=== PATIENT | female | born 1980 | race Caucasian/White ===

== ENCOUNTER 2016-08-10 00:58 | Emergency (ER) | payer OTHER ==
[~2016-08-10] VITALS: Ht 160 cm; Wt 117.8 kg
[~2016-08-10 00:58] MED LIST: LAMO25TA PO; LEVO1TAB PO; LORA-741 PO; SERT25TA PO; SITA100T3 PO; TOPI50TA16 PO; ZIPR20CA PO
[2016-08-10 01:00] VITALS: TEMP 37.1; Ht 160 cm; Wt 117.8 kg
[2016-08-10] MEDS ORDERED: ONDANSETRON INJ 2 MG/ML 2 ML VIAL IV STA (01:12)
[2016-08-10] MEDS ORDERED: HYDROmorphone INJ 1 MG/ML SYR IV STA ×2 (01:12→02:12)
[2016-08-10 01:15] VITALS: O2SAT 98
[2016-08-10 01:33] LABS: BASO % 0.2 %; BASO ABS # 0.03 K/uL (0-0.2); COMPLETE YES; EOS % 1.7 %; HEMATOCRIT 42.5 % (37-47); IG% 0.4 %; LYMPH % 13.8 %; LYMPH ABS # 2.11 K/uL (1.2-3.4); MEAN CELL VOLUME 88.5 fL (80-100); MEAN CORPUSCULAR HEMOGLOBIN 30.6 pg (25-34); MEAN CORPUSCULAR HGB CONC 34.6 g/dl (32-36); MEAN PLATELET VOLUME 10.8 fL (7.4-10.4); MONO % 4.9 %; PLATELET COUNT 192 K/uL (130-400); WHITE BLOOD COUNT 15.34 K/uL (4.8-10.8)
[2016-08-10 01:38] LABS: URINE APPEARANCE CLOUDY (CLEAR); URINE BILIRUBIN NEG (NEG); URINE COLOR YELLOW; URINE EPITHELIAL CELL AUTO >30 /lpf (0-5); URINE NITRITE NEG (NEG); URINE PH 5.5 (4.5-7.5); URINE SPECIFIC GRAVITY 1.031 (1.000-1.030); UROBILINOGEN NEG (NEG); ZZUR CULT IF INDIC CLEAN CATCH YES
[2016-08-10 01:39] LABS: MANUAL MICROSCOPIC REQUIRED? NO; REVIEW REQ? NO
[2016-08-10] MEDS ORDERED: LAMO200T35 PO (01:50)
[2016-08-10 01:53] LABS: ALT/SGPT 19 U/L (12-78); BLOOD UREA NITROGEN 14 mg/dl (7-18); BUN/CREATININE RATIO 14.9 (10-20); CALCIUM 9.4 mg/dl (8.5-10.1); CARBON DIOXIDE 24 mmol/L (21-32); CHLORIDE 107 mmol/L (98-107); CREATININE 0.92 mg/dl (0.60-1.20); GLUCOSE 113 mg/dl (70-99); POTASSIUM 3.8 mmol/L (3.5-5.1); PREG INTERNAL NEGATIVE QC NEG CLEAR BACKGROUND; PREG INTERNAL POSITIVE QC POS CONTROL LINE; SODIUM 139 mmol/L (136-145)
[2016-08-10] MEDS ORDERED: LISI-729 PO (01:56)
[2016-08-10] MEDS ORDERED: ATOR10TA82 PO (01:56)
[2016-08-10] MEDS ORDERED: ADVIN25/60 INH (01:57)
[2016-08-10 01:58] LABS: ALKALINE PHOSPHATASE 78 U/L (45-117); AST/SGOT 11 U/L (15-37)
[2016-08-10] MEDS ORDERED: ALBINS/ INH (01:58)
[2016-08-10] MEDS ORDERED: ALBU18002 INH (01:59)
[2016-08-10] MEDS ORDERED: KETOROLAC TROMETHAMINE 30 MG/ML VIAL IV STA (02:12)
[2016-08-10] MEDS ORDERED: OPTIRAY 320 IV PRN (02:30)
[2016-08-10] MEDS ORDERED: DiphenhydrAMINE HCL 50 MG/ML VIAL IV STA (02:58)
[2016-08-10] MEDS ORDERED: CIPR-255 PO (03:12)
[2016-08-10] MEDS ORDERED: NORCO 5/325MG HOME PACK PO ONE (03:15)
[2016-08-10] MEDS ORDERED: CIPROFLOXACIN 500MG HOME PACK PO ONE (03:15)
[2016-08-10] MEDS ORDERED: PHENERGAN 25MG HOMEPACK PO ONE (03:15)
--- NOTE | 2016-08-10 03:43 | EMERGENCY ROOM VISIT NOTE ---
History Report prepared by Zehra: Kirk Escobar Under the Supervision of: Dr. Huber Garner M.D. First contact with patient: 01:04 Chief Complaint: CHEST PAIN Stated Complaint: PAINS IN CHEST GOING UP INTO NECK History of Present Illness The patient is a 35 year old female who presents to the Emergency Room with complaints of intermittent episodes of chest pain beginning a few weeks ago. She states that her current episode of pain began two hours ago. She states that she has her episodes every day. She rates her current pain as an 8/10 in severity. The patient states that her chest pain radiates up through the right side of her neck, which is new. She states that she has had numbness radiating into her neck before, but never pain. She states that she has experienced numbness into her left arm before in the past as well. The patient follows up with her PCP for her symptoms. She has associated fatigue. Her chest pain is worsened with exertion. Pt denies LOC, headache, fevers, chills, diaphoresis, visual changes, personal history or family history of aneurysm or pulmonary embolism, uncontrolled hypertension, breathing difficulties, leg swelling, coagulation abnormalities, prolonged travel, recent surgery or immobilization, nausea, vomiting, abdominal pain, melena, hematochezia, numbness, weakness, lymphadenopathy, rash, or other complaints. She notes that she has experienced some back pain with urination for the past few days. Source of History: patient Onset: A few weeks ago Position: chest Symptom Intensity: 8/10 Timing: intermittent, other (episodes) Modifying Factors (Worsening): exertion Associated Symptoms: + fatigue, + neck pain (right side), No abdominal pain Review of Systems See HPI for pertinent positives and negatives. A total of ten systems were reviewed and were otherwise negative. Past Medical & Surgical Medical Problems: (1) Asthma (2) Bipolar disorder (3) Bronchitis (4) Diabetes (5) Hypothyroid (6) Hypothyroidism (7) Kidney stones (8) Mononucleosis syndrome (9) Pneumonia Surgical Problems: (1) History of hysterectomy Family History Cancer Diabetes mellitus Gallbladder disease Heart disease Kidney disease Kidney stones Social History Smoking Status: Current Every Day Smoker Alcohol Use: none Drug Use: none Marital Status: Housing Status: lives with family Occupation Status: unemployed Current/Historical Medications Scheduled Atorvastatin (Lipitor), 10 MG PO DAILY Ciprofloxacin Hcl (Cipro), 1 TAB PO BID Lamotrigine (Lamictal), 200 MG PO DAILY Levothyroxine Sodium (Synthroid), Unknown Dose PO DAILY Lisinopril (Zestril), 2.5 MG PO DAILY Sertraline (Zoloft), 50 MG PO HS Sitagliptin Phosphate (Januvia), 100 MG PO DAILY Topiramate (Topamax), 100 MG PO DAILY Ziprasidone Hcl (Geodon), 80 MG PO HS Scheduled PRN Albuterol Sulf (Proventil 0.083% 2.5MG/3ML), 2.5 MG INH DIRECTED PRN for Wheezing Albuterol Sulfate (Proair Respiclick), 2 PUFFS INH DIRECTED PRN for Wheezing Fluticasone Prop/Salmeterol (Advair Diskus 250/50 60 Dose), 1 PUFF INH BID PRN for Shortness of Breath Lorazepam (Ativan), 1 MG PO DIRECTED PRN for Anxiety Allergies Coded Allergies: Iodine (Unverified Allergy, Intermediate, ITCHY, 08/10/16) Penicillins (Unverified Allergy, Intermediate, BREAKOUT, 08/10/16) Physical Exam Vital Signs Date Time Temp Pulse Resp B/P Pulse Ox O2 Delivery O2 Flow Rate FiO2 08/10/16 02:12 76 16 125/69 94 Room Air 08/10/16 01:15 98 Room Air 08/10/16 01:15 98 Room Air 08/10/16 01:15 Room Air 08/10/16 01:14 81 08/10/16 01:00 37.1 86 20 141/88 97 Room Air Physical Exam GENERAL: Awake, alert, uncomfortable-appearing, in no distress HENT: Normocephalic, atraumatic. Oropharynx unremarkable. EYES: Normal conjunctiva. Sclera non-icteric. NECK: Supple. No nuchal rigidity. FROM. No JVD. RESPIRATORY: Clear to auscultation. CARDIAC: Regular rate, normal rhythm. Extremities warm and well perfused. Pulses equal. ABDOMEN: Soft, non-distended. No tenderness to palpation. No rebound or guarding. No masses. RECTAL: Deferred. MUSCULOSKELETAL: Chest examination reveals no tenderness. The back is symmetrical on inspection without obvious abnormality. There is no CVA tenderness to palpation. No joint edema. LOWER EXTREMITIES: Calves are equal size bilaterally and non-tender. No edema. No discoloration. NEURO: Normal sensorium. No sensory or motor deficits noted. SKIN: No rash or jaundice noted. Medical Decision & Procedures ER Provider Diagnostic Interpretation: Chest x-ray. Findings: A chest x-ray was performed and revealed no pneumothorax , effusion, infiltrate, pulmonary edema, free air under the diaphragm, or wide mediastinum. Laboratory Results 08/10/16 01:17 Red Blood Count 4.80, Mean Corpuscular Volume 88.5, Mean Corpuscular Hemoglobin 30.6, Mean Corpuscular Hemoglobin Concent 34.6, Mean Platelet Volume 10.8, Neutrophils (%) (Auto) 79.0, Lymphocytes (%) (Auto) 13.8, Monocytes (%) (Auto) 4.9, Eosinophils (%) (Auto) 1.7, Basophils (%) (Auto) 0.2, Neutrophils # (Auto) 12.13, Lymphocytes # (Auto) 2.11, Monocytes # (Auto) 0.75, Eosinophils # (Auto) 0.26, Basophils # (Auto) 0.03 08/10/16 01:17 Test 08/10/16 01:17 08/10/16 01:24 08/10/16 03:21 White Blood Count 15.34 K/uL (4.8-10.8) Red Blood Count 4.80 M/uL (4.2-5.4) Hemoglobin 14.7 g/dL (12.0-16.0) Hematocrit 42.5 % (37-47) Mean Corpuscular Volume 88.5 fL (80-100) Mean Corpuscular Hemoglobin 30.6 pg (25-34) Mean Corpuscular Hemoglobin Concent 34.6 g/dl (32-36) Platelet Count 192 K/uL (130-400) Mean Platelet Volume 10.8 fL (7.4-10.4) Neutrophils (%) (Auto) 79.0 % Lymphocytes (%) (Auto) 13.8 % Monocytes (%) (Auto) 4.9 % Eosinophils (%) (Auto) 1.7 % Basophils (%) (Auto) 0.2 % Neutrophils # (Auto) 12.13 K/uL (1.4-6.5) Lymphocytes # (Auto) 2.11 K/uL (1.2-3.4) Monocytes # (Auto) 0.75 K/uL (0.11-0.59) Eosinophils # (Auto) 0.26 K/uL (0-0.5) Basophils # (Auto) 0.03 K/uL (0-0.2) RDW Standard Deviation 46.9 fL (36.4-46.3) RDW Coefficient of Variation 14.5 % (11.5-14.5) Immature Granulocyte % (Auto) 0.4 % Immature Granulocyte # (Auto) 0.06 K/uL (0.00-0.02) Urine Color YELLOW Urine Appearance CLOUDY (CLEAR) Urine pH 5.5 (4.5-7.5) Urine Specific [place] 1.031 (1.000-1.030) Urine Protein NEG (NEG) Urine Glucose (UA) NEG (NEG) Urine Ketones TRACE (NEG) Urine Occult Blood NEG (NEG) Urine Nitrite NEG (NEG) Urine Bilirubin NEG (NEG) Urine Urobilinogen NEG (NEG) Urine Leukocyte Esterase TRACE (NEG) Urine WBC (Auto) 1-5 /hpf (0-5) Urine RBC (Auto) 5-10 /hpf (0-4) Urine Hyaline Casts (Auto) 1-5 /lpf (0-5) Urine Epithelial Cells (Auto) >30 /lpf (0-5) Urine Bacteria (Auto) 2+ (NEG) Anion Gap 8.0 mmol/L (3-11) Est Creatinine Clear Calc Drug Dose 104.8 ml/min Estimated GFR () 92.8 Estimated GFR (Non- 80.1 BUN/Creatinine Ratio 14.9 (10-20) Calcium Level 9.4 mg/dl (8.5-10.1) Total Bilirubin 0.3 mg/dl (0.2-1) Direct Bilirubin < 0.1 mg/dl (0-0.2) Aspartate Amino Transf (AST/SGOT) 11 U/L (15-37) Alanine Aminotransferase (ALT/SGPT) 19 U/L (12-78) Alkaline Phosphatase 78 U/L (45-117) Total Creatine Kinase 47 U/L (26-192) Creatine Kinase MB < 0.5 ng/ml (0.5-3.6) Creatine Kinase MB Ratio (0-3.0) Total Protein 7.6 gm/dl (6.4-8.2) Albumin 3.9 gm/dl (3.4-5.0) Lipase 247 U/L (73-393) Human Chorionic Gonadotropin, Qual NEG (NEG) Bedside D-Dimer 219 ng/mlFEU (0-450) Bedside Troponin I 0.000 ng/ml (0-0.045) Laboratory results reviewed by me Medications Administered Medications (Trade) Dose Ordered Sig/Abdelrahman Route Start Time Stop Time Status Last Admin Dose Admin Hydromorphone HCl (Dilaudid Inj) 1 mg NOW STAT IV 08/10/16 01:12 08/10/16 01:14 DC 08/10/16 01:31 1 MG Ondansetron HCl (Zofran Inj) 4 mg NOW STAT IV 08/10/16 01:12 08/10/16 01:14 DC 08/10/16 01:31 4 MG Ketorolac Tromethamine (Toradol Inj) 30 mg NOW STAT IV 08/10/16 02:12 08/10/16 02:14 DC 08/10/16 02:18 30 MG Hydromorphone HCl (Dilaudid Inj) 1 mg NOW STAT IV 08/10/16 02:12 08/10/16 02:14 DC 08/10/16 02:18 1 MG Diphenhydramine HCl (Benadryl Inj) 50 mg NOW STAT IV 08/10/16 02:58 08/10/16 02:59 DC 08/10/16 03:01 50 MG Ciprofloxacin (Cipro 500MG Home Pack) 1 homepack UD ONCE PO 08/10/16 03:15 08/10/16 03:16 DC 08/10/16 03:24 1 HOMEPACK Acetaminophen/ Hydrocodone Bitart ([place] 5/325mg Home Pack) 1 homepack UD ONCE PO 08/10/16 03:15 08/10/16 03:16 DC 08/10/16 03:24 1 HOMEPACK Promethazine HCl (Phenergan 25MG Home Pack) 1 homepack UD ONCE PO 08/10/16 03:15 08/10/16 03:16 DC 08/10/16 03:24 1 HOMEPACK ECG Indication: chest pain Rate (beats per minute): 84 Rhythm: normal sinus Findings: no acute ischemic change, no ectopy ED Course 0106: The patient was evaluated in room B11B. A complete history and physical exam was performed. 0112: Ordered Zofran Inj 4 mg IV, Dilaudid Inj 1 mg IV. 0212: I checked in on the patient. She is still having pain. Ordered Dilaudid Inj 1 mg IV, Toradol Inj 30 mg IV. Medical Decision Triage Nursing notes reviewed. The patient's presentation and history were concerning for chest pain for several weeks. Patient also noted some urinary symptoms. Etiologies such as cardiac ischemia, aortic dissection, pulmonary embolism, pneumonia, pneumothorax, musculoskeletal, infections, gastrointestinal, as well as others were entertained. The patient was evaluated. Hemodynamically she was stable. ECG was nonischemic. She had Zofran and Dilaudid administered. She was feeling somewhat better with this but did want additional pain medicine. She was given a second dose of Dilaudid. The patient had an unremarkable chemistry panel, LFTs, d-dimer, troponin, and repeat troponin. Both were 0. The patient had a slight leukocytosis. Review indicates that the patient has had a leukocytosis of 15,000 on her prior 2 Emergency Room visits dating back over 10 years. The patient did have an abnormal urinalysis and does have urinary symptoms. The patient underwent CT imaging of her chest due to her complaints. There is no evidence of dissection , PE, pneumonia or from. Some debris was noted in the trachea with the patient has had no respiratory symptoms. She will need close outpatient follow-up. I did discuss the results with her. She was upset that no major problems were found. I did encourage her the results look positive but further testing would be necessary. I gave my usual and customary discussion regarding this issue. She will be prescribed Cipro. She was given [place] and Phenergan home pack. By the evaluation outlined above other emergent etiologies such as those listed in the differential, as well as others, were deemed relatively unlikely. The patient was informed about the findings as listed above. All questions were answered and she was pleased with the treatment. Return instructions were outlined and the patient was discharged in stable condition. The patient was referred to her PCP for follow-up tomorrow for a recheck of the current condition. The chart was completed utilizing [employer] voice recognition software. Grammatical errors, random word insertions, pronoun errors, and incomplete sentences are an occasional consequence of this system due to software limitations, ambient noise, and hardware issues. Any formal questions or concerns about the content, text, or information contained within the body of this dictation should be directly addressed to the physician for clarification. Impression Primary Impression: Left sided chest pain Additional Impression: UTI (urinary tract infection) Scribe Attestation The scribe's documentation has been prepared under my direction and personally reviewed by me in its entirety. I confirm that the note above accurately reflects all work, treatment, procedures, and medical decision making performed by me. Departure Information Dispostion Home / Self-Care Prescriptions Ciprofloxacin Hcl (CIPRO) 500 Mg Tab 1 TAB PO BID for 5 Days, #10 TAB Prov: Huber Garner MD 08/10/16 Referrals No Doctor, Assigned (PCP) Patient Instructions A Signature Page, My [facility] Additional Instructions CHEST PAIN INSTRUCTIONS: DO NOT drive, drink alcohol, operate machinery, or perform dangerous activities today. You were given medications in the ER that can affect your ability to safely function or operate a vehicle. Hydrocodone/acetaminophen 5/325mg: Take 1-2 pills every 6 hours as needed for pain. Avoid additional Acetaminophen/Tylenol, alcohol, operating machinery or dangerous equipment, working on ladders or roofs, DRIVING, or situations where being under the influence may be dangerous. It is recommended to use a stool softener such as Colace, 100mg twice daily while taking this medication to avoid constipation. Ciprofloxacin 500mg: Take one pill twice daily for 5 days for your urine infection. All antibiotics can cause diarrhea. If this occurs and you feel worse or it does not resolve in 1-2 days follow up with your doctor or return to the Emergency Department as this could be signs of serious underlying problems. Any medication can cause an allergic reaction or complication, stop the pills immediately and return to the ER for rash, hives, breathing difficulties, tendon pain, tendon injury, or swelling. Phenergan 25mg tabs, one every six hours for nausea. Ibuprofen(Motrin, Advil) may be used for fever or pain. Use 600mg every six hours as needed. Take with food. Avoid using more than 2400mg in a 24 hour period. Do not use 2400mg per day for more than three consecutive days without physician direction. Prolonged inappropriate use can lead to stomach upset or ulcers. (AND/OR) Acetaminophen(Tylenol) may be used for fever or pain. Use 1000mg every six hours as needed. Avoid using more than 4000mg in a 24 hour period. Rest and drink plenty of fluids as tolerated. Continue current medications. Avoid strenuous activities and anything that worsens your pain. Resume normal activities once your symptoms resolve. Return to the ER immediately for worsening or persistent chest pain, abdominal pain, vomiting, fevers, chest pains, difficulty breathing, worsening of your condition, or as needed. Follow up with your primary physician tomorrow for a recheck of your current condition.
[2016-08-10 03:53] VITALS: BP 110/71; PULSE 74; O2SAT 96
--- NOTE | 2016-08-10 06:53 | DIAGNOSTIC IMAGING REPORT ---
CHEST ONE VIEW PORTABLE CLINICAL HISTORY: Atypical chest pain and shortness of breath COMPARISON STUDY: 09/14/2015 FINDINGS: The cardiac and mediastinal contours are normal. There is no evidence of focal pulmonary consolidation. There is no evidence of failure. No pleural effusions are visualized.[ IMPRESSION: No active disease in the chest. Electronically signed by: Brando Talavera M.D. 08/10/2016 6:51 AM
--- NOTE | 2016-08-10 07:10 | DIAGNOSTIC IMAGING REPORT ---
CT ANGIOGRAM OF THE CHEST CLINICAL HISTORY: Left-sided chest and neck pain. Possible pulmonary embolism. COMPARISON STUDY: Chest x-ray dated 08/10/2016 TECHNIQUE: Following the IV administration of 118 mL of Optiray-320, CT angiogram of the thorax was performed from the thoracic inlet to the lung bases utilizing the pulmonary embolus protocol. Images are reviewed in the axial, sagittal, and coronal planes. IV contrast was administered without complication. MIP imaging was performed. CT DOSE: 746.97 mGy.cm FINDINGS: No pathologically enlarged axillary mediastinal or hilar lymph nodes were visualized. There was no evidence of thoracic aortic dilatation. There were no pulmonary artery filling defects to indicate acute pulmonary embolism. No pleural effusions are visualized. There was no evidence of focal pulmonary consolidation. There is subtle mosaic attenuation within the lower lobes, likely secondary to air-trapping. There is a small amount of debris within the distal trachea at the level the telma IMPRESSION: 1. No CT evidence of acute pulmonary embolism 2. Small amount of debris within the distal trachea at the level the telma 3. No evidence of focal pulmonary consolidation Electronically signed by: Brando Talavera M.D. 08/10/2016 7:08 AM
== END 2016-08-10 03:50 | disposition home or self-care (01) ==
LOC: C.EDB 00:59
DX: R07.9 Chest pain, unspecified (principal); N39.0 Urinary tract infection, site not specified; J45.909 Unspecified asthma, uncomplicated; F31.9 Bipolar disorder, unspecified; E03.9 Hypothyroidism, unspecified; E11.9 Type 2 diabetes mellitus without complications; Z90.710 Acquired absence of both cervix and uterus; Z82.49 Family history of ischemic heart disease and other diseases of the circulatory system; F17.200 Nicotine dependence, unspecified, uncomplicated

== ENCOUNTER 2017-05-14 12:44 | Emergency (ER) | payer OTHER ==
[~2017-05-14] VITALS: Ht 160 cm; Wt 122.3 kg
[~2017-05-14 12:44] MED LIST changes: +ADVIN25/60 INH; +ALBINS/ INH; +ALBU18002 INH; +ATOR10TA88 PO; +CIPR-255 PO; +LAMO200T38 PO; -LAMO25TA PO; +LISI-729 PO
[2017-05-14] MEDS ORDERED: DiphenhydrAMINE HCL 50 MG/ML VIAL IV STA (13:13)
[2017-05-14] MEDS ORDERED: SODIUM CHLORIDE 0.9% 1000ML 1,000 ML IV STA ×2 (13:13)
[2017-05-14] MEDS ORDERED: METOCLOPRAMIDE HCL INJ 5 MG/ML 2 ML VIAL IV STA (13:13)
[2017-05-14] MEDS ORDERED: ALBUT/IPRATROP 3MG/0.5MG NEB 3 ML VIAL INH STA (13:20)
--- NOTE | 2017-05-14 13:38 | DIAGNOSTIC IMAGING REPORT ---
CHEST ONE VIEW PORTABLE HISTORY: 36 years-old Female Evaluate Fever/Sepsis acute fever with sepsis. COMPARISON: Chest radiograph 08/10/2016 TECHNIQUE: Portable upright AP view of the chest FINDINGS: Cardiac silhouette is within normal limits. No pneumothorax, pleural effusion or lobar airspace consolidation. Linear perihilar and lateral left midlung subsegmental opacities suggest atelectasis. The bones are grossly intact. IMPRESSION: Perihilar and lateral left midlung subsegmental atelectasis without acute cardiopulmonary process. The above report was generated using voice recognition software. It may contain grammatical, syntax or spelling errors. Electronically signed by: Bruno Johnson M.D. 05/14/2017 1:37 PM Dictated Date/Time: 05/14/2017 1:36 PM
[2017-05-14 13:56] LABS: BASO % 0.2 %; BASO ABS # 0.02 K/uL (0-0.2); COMPLETE YES; EOS % 1.5 %; HEMATOCRIT 37.2 % (37-47); IG% 0.6 %; LYMPH % 10.8 %; LYMPH ABS # 1.26 K/uL (1.2-3.4); MEAN CELL VOLUME 88.6 fL (80-100); MEAN CORPUSCULAR HEMOGLOBIN 30.2 pg (25-34); MEAN CORPUSCULAR HGB CONC 34.1 g/dl (32-36); MEAN PLATELET VOLUME 10.1 fL (7.4-10.4); MONO % 4.5 %; NEUT % 82.4 %; PLATELET COUNT 174 K/uL (130-400); WHITE BLOOD COUNT 11.63 K/uL (4.8-10.8)
--- NOTE | 2017-05-14 14:03 | EMERGENCY ROOM VISIT NOTE ---
History Report prepared by Zehra: Low Pierre Under the Supervision of: Dr. Jose Daniel Manriquez M.D. First contact with patient: 13:10 Chief Complaint: HEADACHE Stated Complaint: SEVERE GAINES, CONFUSION, CONGESTION History of Present Illness The patient is a 36 year old female who presents to the Emergency Room with complaints of a constant headache that started three days ago. She rates her discomfort as an 8/10 in severity. She states that she had bronchitis for a month and went back to doctors for an antibiotic. The patient reports she took one pill and became ill, which caused her to report to the [place] ED five nights ago. She states that she was put on multiple antibiotics that night and transferred her to [facility]. She states that she was in [facility] when she was diagnosed with septic shock. The patient states that she was in the ICU for two nights. She reports that she was put on Doxycycline and was going to be stepped down to the floor but she reports feeling improved and so she asked to go home. Specifically, she reports that she was going to be transferred from the ICU to a regular room, was being taken off fluids, and was going to be put on oral antibiotics, which caused her to want to go home right from the ICU. The patient states that she went home three days ago and the headache (which she had throughout her hospitalization) came back later that day. She states that since the hospital she has been experiencing diarrhea, which she describes as watery, neck pain, lip pain, nausea, vomiting, congestion, and dizziness. The patient reports that her diarrhea occurs about 8-10 times a day. She also admits that she has been experiencing a fever of 99. She states that she has had erythema in her eyes since she became ill. The patient reports that she was experiencing a burning sensation with urination, but admits that this has resolved a couple of days ago. She reports that she came here because she was not pleased with her care at [facility]. The patient admits to a history of hypothyroidism and bipolar disorder, which she takes medication for. She denies history of migraines, abdominal pain, ear pain, and sore throat. Source of History: patient Onset: 3 days ago Position: head Symptom Intensity: 8/10 Timing: constant Modifying Factors (Relieving): other (Doxycycline) Associated Symptoms: + fevers, + neck pain, + nausea, + vomiting, + diarrhea , + urinary symptoms, No sorethroat, No abdominal pain Review of Systems See HPI for pertinent positives and negatives. A total of ten systems were reviewed and were otherwise negative. Past Medical & Surgical Medical Problems: (1) Asthma (2) Bipolar disorder (3) Bronchitis (4) Diabetes (5) Hypothyroid (6) Hypothyroidism (7) Kidney stones (8) Mononucleosis syndrome (9) Pneumonia Surgical Problems: (1) History of hysterectomy Family History Cancer Diabetes mellitus Gallbladder disease Heart disease Kidney disease Kidney stones Social History Smoking Status: Current Every Day Smoker Alcohol Use: none Drug Use: none Marital Status: Housing Status: lives with family Occupation Status: unemployed Current/Historical Medications Scheduled Atorvastatin (Lipitor), 10 MG PO HS Doxycycline Hyclate (Vibramycin), 100 MG PO QAM Lamotrigine (Lamictal), 200 MG PO HS Levothyroxine Sodium (Levothyroxine Sodium), 137 MCG PO HS Lisinopril (Zestril), 2.5 MG PO HS Saccharomyces Boulardii (Florastor), 1 CAP PO BID Sertraline (Zoloft), 50 MG PO HS Sitagliptin Phosphate (Januvia), 100 MG PO HS Topiramate (Topamax), 100 MG PO HS Ziprasidone Hcl (Geodon), 80 MG PO HS Scheduled PRN Albuterol Sulf (Proventil 0.083% 2.5MG/3ML), 2.5 MG INH DIRECTED PRN for Wheezing Albuterol Sulfate (Proair Respiclick), 2 PUFFS INH DIRECTED PRN for Wheezing Fluticasone Prop/Salmeterol (Advair Diskus 250/50 60 Dose), 1 PUFF INH BID PRN for Shortness of Breath Lorazepam (Ativan), 1 MG PO DIRECTED PRN for Anxiety Allergies Coded Allergies: Iodine (Unverified Allergy, Intermediate, ITCHY, 08/10/16) Penicillins (Unverified Allergy, Intermediate, BREAKOUT, 08/10/16) Physical Exam Vital Signs Date Time Temp Pulse Resp B/P (MAP) Pulse Ox O2 Delivery O2 Flow Rate FiO2 05/14/17 18:20 36.9 88 18 142/84 96 05/14/17 18:15 88 18 142/84 96 Room Air 05/14/17 15:06 73 05/14/17 14:44 61 16 122/76 96 Room Air 05/14/17 14:40 97 Room Air 05/14/17 12:49 36.9 73 18 163/93 97 Room Air Physical Exam GENERAL: Awake, alert, uncomfortable but in NAD HENT: Normocephalic, atraumatic. Oropharynx unremarkable. Dry mucous membrane. EYES: Normal conjunctiva. Left eye scleral injection. NECK: Supple. No nuchal rigidity. FROM. No JVD. No meningismus. RESPIRATORY: Scant scattered rhonchi and wheezes, otherwise good air movement. CARDIAC: Regular rate, normal rhythm. Extremities warm and well perfused. Pulses equal. ABDOMEN: Soft, non-distended. No tenderness to palpation. No rebound or guarding. No masses. RECTAL: Deferred. MUSCULOSKELETAL: Chest examination reveals no tenderness. The back is symmetrical on inspection without obvious abnormality. There is no CVA tenderness to palpation. No joint edema. LOWER EXTREMITIES: Calves are equal size bilaterally and non-tender. No edema. No discoloration. NEURO: Normal sensorium. No sensory or motor deficits noted. SKIN: No rash or jaundice noted. Medical Decision & Procedures ER Provider Diagnostic Interpretation: X-ray: Per my interpretation, radiologist review. CHEST ONE VIEW PORTABLE HISTORY: 36 years-old Female Evaluate Fever/Sepsis acute fever with sepsis. COMPARISON: Chest radiograph 08/10/2016 TECHNIQUE: Portable upright AP view of the chest FINDINGS: Cardiac silhouette is within normal limits. No pneumothorax, pleural effusion or lobar airspace consolidation. Linear perihilar and lateral left midlung subsegmental opacities suggest atelectasis. The bones are grossly intact. IMPRESSION: Perihilar and lateral left midlung subsegmental atelectasis without acute cardiopulmonary process. The above report was generated using voice recognition software. It may contain grammatical, syntax or spelling errors. Electronically signed by: Bruno Johnson M.D. 05/14/2017 1:37 PM Dictated Date/Time: 05/14/2017 1:36 PM Laboratory Results 05/14/17 13:38 Red Blood Count 4.20, Mean Corpuscular Volume 88.6, Mean Corpuscular Hemoglobin 30.2, Mean Corpuscular Hemoglobin Concent 34.1, Mean Platelet Volume 10.1, Neutrophils (%) (Auto) 82.4, Lymphocytes (%) (Auto) 10.8, Monocytes (%) (Auto) 4.5, Eosinophils (%) (Auto) 1.5, Basophils (%) (Auto) 0.2, Neutrophils # (Auto) 9.58, Lymphocytes # (Auto) 1.26, Monocytes # (Auto) 0.52, Eosinophils # (Auto) 0.18, Basophils # (Auto) 0.02 05/14/17 13:38 Test 05/14/17 13:38 05/14/17 14:45 White Blood Count 11.63 K/uL (4.8-10.8) Red Blood Count 4.20 M/uL (4.2-5.4) Hemoglobin 12.7 g/dL (12.0-16.0) Hematocrit 37.2 % (37-47) Mean Corpuscular Volume 88.6 fL (80-100) Mean Corpuscular Hemoglobin 30.2 pg (25-34) Mean Corpuscular Hemoglobin Concent 34.1 g/dl (32-36) Platelet Count 174 K/uL (130-400) Mean Platelet Volume 10.1 fL (7.4-10.4) Neutrophils (%) (Auto) 82.4 % Lymphocytes (%) (Auto) 10.8 % Monocytes (%) (Auto) 4.5 % Eosinophils (%) (Auto) 1.5 % Basophils (%) (Auto) 0.2 % Neutrophils # (Auto) 9.58 K/uL (1.4-6.5) Lymphocytes # (Auto) 1.26 K/uL (1.2-3.4) Monocytes # (Auto) 0.52 K/uL (0.11-0.59) Eosinophils # (Auto) 0.18 K/uL (0-0.5) Basophils # (Auto) 0.02 K/uL (0-0.2) RDW Standard Deviation 46.1 fL (36.4-46.3) RDW Coefficient of Variation 14.4 % (11.5-14.5) Immature Granulocyte % (Auto) 0.6 % Immature Granulocyte # (Auto) 0.07 K/uL (0.00-0.02) Anion Gap 6.0 mmol/L (3-11) Est Creatinine Clear Calc Drug Dose 122.1 ml/min Estimated GFR () 109.2 Estimated GFR (Non- 94.2 BUN/Creatinine Ratio 12.9 (10-20) Lactic Acid Level 1.1 mmol/L (0.4-2.0) Calcium Level 9.1 mg/dl (8.5-10.1) Total Bilirubin 0.3 mg/dl (0.2-1) Direct Bilirubin 0.1 mg/dl (0-0.2) Aspartate Amino Transf (AST/SGOT) 12 U/L (15-37) Alanine Aminotransferase (ALT/SGPT) 26 U/L (12-78) Alkaline Phosphatase 60 U/L (45-117) Total Protein 6.5 gm/dl (6.4-8.2) Albumin 3.3 gm/dl (3.4-5.0) Urine Color YELLOW Urine Appearance CLEAR (CLEAR) Urine pH 5.5 (4.5-7.5) Urine Specific [place]dy 1.017 (1.000-1.030) Urine Protein NEG (NEG) Urine Glucose (UA) NEG (NEG) Urine Ketones NEG (NEG) Urine Occult Blood NEG (NEG) Urine Nitrite NEG (NEG) Urine Bilirubin NEG (NEG) Urine Urobilinogen NEG (NEG) Urine Leukocyte Esterase NEG (NEG) Urine WBC (Auto) 1-5 /hpf (0-5) Urine RBC (Auto) 0-4 /hpf (0-4) Urine Hyaline Casts (Auto) 0 /lpf (0-5) Urine Epithelial Cells (Auto) >30 /lpf (0-5) Urine Bacteria (Auto) NEG (NEG) Date/Time Source Procedure Growth Status 05/14/17 14:45 Stool C.difficile Toxin B Gene (PCR) - Final No C. difficile toxin B gene detected Complete Laboratory results reviewed by me Medications Administered Medications (Trade) Dose Ordered Sig/Abdelrahman Route Start Time Stop Time Status Last Admin Dose Admin Sodium Chloride 1,000 ml @ 999 mls/hr Q1H1M STAT IV 05/14/17 13:13 05/14/17 14:13 DC 05/14/17 14:37 999 MLS/HR Sodium Chloride 1,000 ml @ 999 mls/hr Q1H1M STAT IV 05/14/17 13:13 05/14/17 14:13 DC 05/14/17 14:37 999 MLS/HR Metoclopramide HCl (Reglan Inj) 10 mg NOW STAT IV 05/14/17 13:13 05/14/17 13:18 DC 05/14/17 14:36 10 MG Diphenhydramine HCl (Benadryl Inj) 25 mg NOW STAT IV 05/14/17 13:13 05/14/17 13:19 DC 05/14/17 14:36 25 MG Albuterol/ Ipratropium (Duoneb) 3 ml NOW STAT INH 05/14/17 13:20 05/14/17 13:21 DC 05/14/17 14:35 3 ML Dexamethasone Sodium Phosphate (Decadron Inj) 10 mg NOW ONCE IV 05/14/17 16:45 05/14/17 16:46 DC 05/14/17 16:40 10 MG ECG Indication: nausea Rate (beats per minute): 79 Rhythm: normal sinus Findings: no acute ischemic change, other (Normal axis) Comparison ECG Date: Change: no significant change ED Course 1302: The patient was evaluated in room A11B. A complete history and physical exam was performed. 1313: Ordered Benadryl Injection 25 mg IV, Reglan Injection 10 mg IV, Sodium Chloride 1000 ml @ 999 mls/hr IV. 1320: Ordered Duoneb 3 ml INH. 1645: Ordered Decadron Injection 10 mg IV. 1808: I reevaluated the patient. Discussed results and discharge instructions: She verbalized understanding and agreement. The patient is ready for discharge. Medical Decision I reviewed the patient's past medical history, medications, and the nursing notes as described above. The patient's presentation and history were concerning for PNA, bronchitis, UTI , C. Diff, gastroenteritis, colitis, and sepsis. The patient is a 36-year-old woman with a past medical history of a recent admission to [facility] ICU for sepsis self discharged on Tuesday on now presents to emergency department with worsening headache, feverish and chills, cough and congestion or history of present illness. On arrival the patient appears uncomfortable but in no acute distress. She is afebrile with stable vital signs. Her neck is supple with no signs of meningismus. Lung sounds are with scattered wheezes and rhonchi. WBC is slightly elevated at 11.6. Otherwise, lactate within normal limits. BMP unremarkable. Chest x-ray with question atelectasis but no clear infiltrates. Patient was reevaluated and reported minimal improvement, however , clinically the patient appeared more comfortable, which she says was probably "because she feels loopy from the Benadryl" and that she really didn't feel any better. I reassured the patient that overall her workup did not show any signs of any emergent condition and from infection standpoint she can continue her current antibiotics. I explained that we will try a dose of dexamethasone for additional anti-inflammatory effect to see if her headache will improve. She was agreeable with this. She was then given time to allow for steroid effect and subsequently patient was requesting to the nurse that she be discharged. I was in the process of evaluating multiple new patients at the time the nurse informed me of the patient's wishes to be discharged. Once I was able, I met with the patient to discuss her concerns and she reported that she still did not feel better however she preferred to go home. Given the patient's evaluation was not concerning for any worsening infectious process and her neuro exam is unremarkable, with supple neck with full range of motion, further evaluation of her headache not indicated at this time. Thus, patient's request for discharge was reasonable given that she will follow-up with her PCP closely. I asked the patient if she had any particular concerns and specifically if she was hoping to have received a narcotic for her headache, which she denied, rather she said she "doesn't like those medications". I explained that the reason I asked was to educate her that narcotics are an appropriate medication in the setting of acute pain such as from a broken bone or recent surgery. However, they are not recommended chronic pain symptoms such as a headache given their risk of promoting rebound hyper-algesia causing the patient's pain to be more severe when not taking the narcotic. She again explained that she was not interested in narcotics and so this did not seem to be one of her concerns. I again highlighted that her workup was reassuring that she should continue her take her current prescription for doxycycline. Her C. difficile test was still pending and I explained that she will be contacted if it's positive. I did add a probiotic prescription to help minimize the risk of antibiotic associated diarrhea. Findings and plan for follow-up reviewed with patient. Patient agreeable and d/c'd per discharge instructions. Of note, I was later informed by the nurse that the patient was requesting to clarify my name and hers, however the patient never communicated any displeasure or frustration to me directly. Medication Reconcilliation Current Medication List: was personally reviewed by me Blood Pressure Screening Patient's blood pressure: Elevated blood pressure Blood pressure disposition: Elevated BP felt to be situational Impression Primary Impression: Pneumonia Additional Impression: Headache Scribe Attestation The scribe's documentation has been prepared under my direction and personally reviewed by me in its entirety. I confirm that the note above accurately reflects all work, treatment, procedures, and medical decision making performed by me. Departure Information Dispostion Home / Self-Care Prescriptions Saccharomyces Boulardii (Florastor) 250 Mg Cap 1 CAP PO BID for 14 Days, #28 CAP Prov: Jose Daniel Manriquez M.D. 05/14/17 Referrals No Doctor, Assigned (PCP) Patient Instructions ED Headache Migraine, My [facility], Pneumonia Dc Additional Instructions Please follow up with your primary care physician on Tuesday for re-evaluation. Your symptoms are likely due to dehydration in the setting of your current pneumonia that is being treated. Your C-diff test is pending and you will be only contacted if you results are positive. Otherwise, your exam, EKG, chest xray, and lab results did not show signs of an emergent condition at this time. Continue your antibiotics as prescribed. Drink plenty of fluids to ensure hydration. Take probiotic as directed to minimize risk of antibiotic associated diarrhea. Return to the emergency department for worsening symptoms as described in the accompanying instructions. Problem Qualifiers
[2017-05-14] MEDS ORDERED: SYN137 PO (14:07)
[2017-05-14] MEDS ORDERED: DOXY100C2 PO (14:07)
[2017-05-14 14:13] LABS: BUN/CREATININE RATIO 12.9 (10-20); CALCIUM 9.1 mg/dl (8.5-10.1); CREATININE 0.8 mg/dl (0.60-1.20); POTASSIUM 3.9 mmol/L (3.5-5.1)
[2017-05-14 14:40] VITALS: O2SAT 97; Ht 160 cm; Wt 122.3 kg
[2017-05-14 15:01] LABS: URINE APPEARANCE CLEAR (CLEAR); URINE BILIRUBIN NEG (NEG); URINE COLOR YELLOW; URINE EPITHELIAL CELL AUTO >30 /lpf (0-5); URINE NITRITE NEG (NEG); URINE PH 5.5 (4.5-7.5); URINE SPECIFIC GRAVITY 1.017 (1.000-1.030); UROBILINOGEN NEG (NEG)
[2017-05-14 15:11] LABS: MANUAL MICROSCOPIC REQUIRED? NO; REVIEW REQ? NO
[2017-05-14] MEDS ORDERED: DEXAMETHASONE SOD INJ 10 MG/ML VIAL IV ONE (16:45)
[2017-05-14] MEDS ORDERED: SACC250C3 PO (18:14)
[2017-05-14 18:20] VITALS: BP 142/84; PULSE 88; TEMP 36.9; O2SAT 96
== END 2017-05-14 18:21 | disposition home or self-care (01) ==
LOC: C.EDB 12:46 → C.EDA 18:21
DX: J18.9 Pneumonia, unspecified organism (principal); R51 Headache; E03.9 Hypothyroidism, unspecified; F31.9 Bipolar disorder, unspecified; E11.9 Type 2 diabetes mellitus without complications; Z90.710 Acquired absence of both cervix and uterus; F17.200 Nicotine dependence, unspecified, uncomplicated; Z83.3 Family history of diabetes mellitus; Z84.1 Family history of disorders of kidney and ureter